=== PATIENT | female | born 1965 | race Caucasian/White ===

== ENCOUNTER 2017-06-16 16:33 | Emergency (ER) | payer OTHER ==
[~2017-06-16] VITALS: Ht 165.1 cm; Wt 65.0 kg
[2017-06-16] MEDS ORDERED: KEFLEX500 MG PO (18:13)
[2017-06-16 18:35] VITALS: BP 123/92
== END 2017-06-16 18:36 | disposition home or self-care (01) ==
LOC: EME 16:33
DX: S01.81XA Laceration without foreign body of other part of head, initial encounter (principal); W01.10XA Fall on same level from slipping, tripping and stumbling with subsequent striking against unspecified object, initial encounter; Y92.524 Gas station as the place of occurrence of the external cause
CPT/HCPCS: 99281; 99283